=== PATIENT | female | born 1995 | race Two or more races ===

== ENCOUNTER 2020-03-07 13:28 | Inpatient (IN) | payer OTHER ==
[~2020-03-07] VITALS: Ht 157.5 cm; Wt 58.1 kg
== END 2020-03-09 15:27 | disposition home or self-care (01) | DRG 832 ==
LOC: LDR 13:28
PROVIDERS: ADMIT Obstetrics & Gynecology; ATTEND Obstetrics & Gynecology
PROC: 4A1HXCZ Monitoring of Products of Conception, Cardiac Rate, External Approach (ICD-10-PCS; 2020-03-07)
PROC: BY4FZZZ Ultrasonography of Third Trimester, Single Fetus (ICD-10-PCS; principal; 2020-03-09)
DX: O41.03X0 Oligohydramnios, third trimester, not applicable or unspecified (principal); O23.33 Infections of other parts of urinary tract in pregnancy, third trimester; O24.410 Gestational diabetes mellitus in pregnancy, diet controlled; Z3A.35 35 weeks gestation of pregnancy; Z37.0 Single live birth

== ENCOUNTER 2020-03-14 13:17 | Inpatient (IN) | payer OTHER ==
[~2020-03-14] VITALS: Ht 157.5 cm; Wt 57.6 kg
[2020-03-14] MEDS ORDERED: PRENATAL CAPLE1 EAC1 PO (14:15)
== END 2020-03-14 19:26 | disposition home or self-care (01) | DRG 832 ==
LOC: LDR 13:17
PROVIDERS: ADMIT Obstetrics & Gynecology; ATTEND Obstetrics & Gynecology
PROC: 4A1HXCZ Monitoring of Products of Conception, Cardiac Rate, External Approach (ICD-10-PCS; principal; 2020-03-14)
DX: O23.33 Infections of other parts of urinary tract in pregnancy, third trimester (principal); O41.03X0 Oligohydramnios, third trimester, not applicable or unspecified; O24.410 Gestational diabetes mellitus in pregnancy, diet controlled; Z20.828 Contact with and (suspected) exposure to other viral communicable diseases; Z3A.33 33 weeks gestation of pregnancy

== ENCOUNTER 2020-04-04 06:36 | Inpatient (IN) | payer OTHER ==
[~2020-04-04] VITALS: Ht 157.5 cm; Wt 60.3 kg
[~2020-04-04 06:36] MED LIST: PRENATAL CAPLE1 EAC1 PO
== END 2020-04-06 14:52 | DRG 807 ==
LOC: OB/GYN 06:36 → LDR 06:36 → OB/GYN 23:58
PROVIDERS: ADMIT Obstetrics & Gynecology; ATTEND Obstetrics & Gynecology
PROC: 10E0XZZ Delivery of Products of Conception, External Approach (ICD-10-PCS; principal; 2020-04-04)
PROC: 0HQ9XZZ Repair Perineum Skin, External Approach (ICD-10-PCS; 2020-04-04)
PROC: 4A0HXFZ Measurement of Products of Conception, Cardiac Rhythm, External Approach (ICD-10-PCS; 2020-04-04)
DX: O70.0 First degree perineal laceration during delivery (principal); Z37.0 Single live birth; Z3A.39 39 weeks gestation of pregnancy; Z20.828 Contact with and (suspected) exposure to other viral communicable diseases

== ENCOUNTER 2021-05-02 08:00 | Outpatient (CLI) | payer OTHER | END 2021-05-02 08:30 | disposition home or self-care (01) | LOC: PPH VACUNA 08:00 | PROVIDERS: ATTEND Emergency Medicine Pediatric Emergency Medicine | DX: Z23 Encounter for immunization (principal) ==